=== PATIENT | female | born 2000 | race Two or more races ===

== ENCOUNTER 2024-12-30 01:22 | Inpatient (IN) | payer OTHER ==
[~2024-12-30] VITALS: Ht 172.7 cm; Wt 69.4 kg
[2024-12-30] VITALS (8 sets, daily range): BP systolic 100–124; BP diastolic 53–79
[2024-12-30] MEDS ORDERED: OXYTOCIN 20 UNITS/1000ML RL PIGGYBAG IV ONE (01:23)
[2024-12-30] MEDS ORDERED: LIDOCAINE HCL 1% 10ML VIAL ONE (01:23)
[2024-12-30] MEDS ORDERED: CHLORHEXIDINE GLUCONATE 120 ML BOTTLE TOP ONE (01:23)
[2024-12-30] MEDS ORDERED: AMPICILLIN SODIUM 2,000 MG VIAL ONE (01:23)
[2024-12-30] MEDS ORDERED: ERYTHROMYCIN BASE OPHT 1GM EACH TUBE OP ONE ×2 (01:23→02:45)
[2024-12-30] MEDS ORDERED: RINGERS SOLUTION,LACTATED 1,000 ML IV SCH (01:30)
[2024-12-30] MEDS ORDERED: AMPICILLIN SODIUM 2,000 MG VIAL IV ONE (01:30)
[2024-12-30] MEDS ORDERED: OXYTOCIN 10 UNITS/ML VIAL ONE (01:50)
[2024-12-30 02:03] LABS: HEMOGLOBIN 12.2 g/dL (12.0-15.00); MEAN CELL VOLUME 86.5 fL (80.00-100.00); MEAN CORPUSCULAR HEMOGLOBIN 29.4 pg (27.00-32.0); PLATELET COUNT 174 K/uL (150-450); RED BLOOD COUNT 4.16 M/uL (4.00-6.00); RED CELL DISTRIBUTION WIDTH 17.6 % (11.5-14.5)
[2024-12-30] MEDS ORDERED: PRENATAL TABLE1 EAC1 PO (02:09)
[2024-12-30] MEDS ORDERED: IBUprofen 400 MG TABLET PO PRN (02:15)
[2024-12-30 02:25] LABS: ALBUMIN 2.9 gm/dL (3.4-5.0); BILIRUBIN TOTAL 0.26 mg/dL (0.3-1.2); CALCIUM 9.3 mg/dL (8.5-10.1); CREATININE SERUM 0.7 mg/dL (0.55-1.02); GFR 101.95; GLOBULINA 3.7 G/DL (2.4-3.5); POTASSIUM 3.63 mEq/L (3.5-5.1); TOTAL PROTEIN 6.6 gm/dL (6.4-8.2)
[2024-12-30 02:41] LABS: INR < 0.93; PARTIAL THROMBOPLASTIN TIME 25.9 SECONDS (22.0-34.0); PROTHROMBIN TIME 10.2 SECONDS (9.0-11.5)
[2024-12-30] MEDS ORDERED: OXYTOCIN 1,000 ML IV SCH (02:45)
[2024-12-30] MEDS ORDERED: OXYTOCIN 10 UNITS/ML VIAL IM STA (02:45)
[2024-12-30] MEDS ORDERED: CHLORHEXIDINE GLUCONATE 120 ML BOTTLE TOP SCH (02:45)
[2024-12-30] MEDS ORDERED: IBUprofen 400 MG TABLET PO ONE (03:56)
[2024-12-30 08:55] LABS: HEMATOCRIT 34.4 % (36.0-45.00); HEMOGLOBIN 11.1 g/dL (12.0-15.00); MEAN CELL VOLUME 87.8 fL (80.00-100.00); MEAN CORPUSCULAR HEMOGLOBIN 28.4 pg (27.00-32.0); MEAN CORPUSCULAR HGB CONC 32.3 g/dl (32.0-36.0); PLATELET COUNT 173 K/uL (150-450); RED BLOOD COUNT 3.91 M/uL (4.00-6.00); RED CELL DISTRIBUTION WIDTH 17.4 % (11.5-14.5)
[2024-12-30] MEDS ORDERED: DOCUSATE SODIUM 100MG CAP PO SCH (09:00)
[2024-12-30] MEDS ORDERED: HYDROCORTISONE ACETATE 25 MG/SUPP.RECT SUPP.RECT RECTAL SCH (09:00)
[2024-12-31 07:52] VITALS: BP 107/72
[2024-12-31 19:37] VITALS: BP 114/76
[2025-01-01 01:00] VITALS: BP 105/65
[2025-01-01 07:45] VITALS: BP 116/73
[2025-01-01 17:42] VITALS: BP 117/77
== END 2025-01-01 17:23 | disposition home or self-care (01) | DRG 807 ==
LOC: LDR 01:22 → OB/GYN 01:22
PROVIDERS: Obstetrics & Gynecology; ADMIT Obstetrics & Gynecology; ATTEND Obstetrics & Gynecology
PROC: 10E0XZZ Delivery of Products of Conception, External Approach (ICD-10-PCS; principal; 2024-12-30)
PROC: 4A1HXCZ Monitoring of Products of Conception, Cardiac Rate, External Approach (ICD-10-PCS; 2024-12-30)
DX: O80 Encounter for full-term uncomplicated delivery (principal); Z37.0 Single live birth; Z3A.39 39 weeks gestation of pregnancy